=== PATIENT | male | born 1995 | race Hispanic/Latino ===

== ENCOUNTER 2024-02-28 08:09 | Emergency (ER) | payer SELFPAY ==
[2024-02-28 08:10] VITALS: BP 117/60; PULSE 100; RESP 16; TEMP 36.4; O2SAT 100
--- NOTE | 2024-02-28 10:02 | ED.GENADULT ---
HPI - General Adult General Chief complaint: Recheck/Abnormal Lab/Rx Stated complaint: dehydrated Time Seen by Provider: 02/28/24 10:03 via digital program manager, patient presents after drinking a lot of alcohol over the past 3 days. patient states he has not been drinking water or eating food. patient having epigastric abdominal pain and RUQ abdominal pain. PE: A&Ox3, RUQ abdominal pain and epigastric abdominal pain upon palpation. BS CTA, HR RRR. moving all extremities History of Present Illness HPI narrative: 28 y/o male presents with n/v, epigastric, and RUQ abdominal pain that started 3 days ago. patient states he has been drinking alcohol for 3 days straight and has not ate or drank any water. patient denies fevers. patient denies any medical problems. Onset (ago): day(s) (3) Related Data Allergies Allergy/AdvReac Type Severity Reaction Status Date / Time No Known Allergies Allergy Verified 02/28/24 10:15 Review of Systems Review of Systems: All systems reviewed & are unremarkable except as noted in HPI and below Constitutional: Constitutional: Reports fatigue and Denies fever(s) Gastrointestinal: Gastrointestinal: Reports abdominal pain, Reports heartburn, Reports diarrhea, Reports nausea and Reports vomiting Exam Const: General: healthy appearing and no acute distress HENMT: Head: normal to inspection Eyes: Conjunctivae: conjunctivae normal EOM: EOMs intact bilaterally Neck: Neck: normal visual inspection Chest: Chest palpation & inspection: normal inspection of the chest Resp: Effort & Inspection: normal respiratory effort Cardio: Rate: regular rate GI: GI Palp: Yes Tenderness to palpation present (GI) (ruq and epigastric ) Back/Spine/Pelvis: Back: no CVA tenderness Skin: General skin exam: normal color Neuro: General: patient oriented x3 Extrem: General: normal to inspection Psych: Mental Status: mental status grossly normal Course Course Emergency Course: labs, fluids and zofran Reevaluation(s) Reevaluation #1: patient is feeling better and ready to discharge home Date: 02/28/24 Time: 11:52 Vital Signs Vital signs: Vital Signs Temperature 36.4 C 02/28/24 08:10 Pulse Rate 100 02/28/24 08:10 Respiratory Rate 16 02/28/24 08:10 Blood Pressure 117/60 02/28/24 08:10 Pulse Oximetry 100 02/28/24 08:10 Temperature 36.4 C L 02/28/24 10:22 Pulse Rate 108 H 02/28/24 11:02 Respiratory Rate 19 02/28/24 11:02 Blood Pressure 150/91 H 02/28/24 11:02 Pulse Oximetry 98 02/28/24 11:02 Medical Decision Making MDM Narrative Medical decision making narrative: patient likely having dehydration r/t alcohol intoxication. patient feeling better after fluids and tolerating PO intake. will discharge home with zofran and pepcid Vital Signs Vital Signs: Vital Signs Temperature 36.4 C 02/28/24 08:10 Pulse Rate 100 02/28/24 08:10 Respiratory Rate 16 02/28/24 08:10 Blood Pressure 117/60 02/28/24 08:10 Pulse Oximetry 100 02/28/24 08:10 Temperature 36.4 C L 02/28/24 10:22 Pulse Rate 108 H 02/28/24 11:02 Respiratory Rate 19 02/28/24 11:02 Blood Pressure 150/91 H 02/28/24 11:02 Pulse Oximetry 98 02/28/24 11:02 Lab Data 02/28/24 10:26 02/28/24 10:26 Labs: Lab Results 02/28/24 02/28/24 Range/Units 10:26 11:24 WBC 7.5 (4.5-10.0) K/mm3 RBC 5.47 (4.6-6.20) M/mm3 Hgb 16.4 (14.0-18.0) g/dL Hct 48.7 (42.0-52.0) % MCV 89.0 (80-100) fl MCH 30.0 (26-34) pg MCHC 33.7 (32-36) g/dl RDW 10.6 L (11.5-14.5) % Plt Count 227 (150-375) k/mm3 MPV 11.5 H (7.4-10.4) fl Immature Gran % (Auto) 0.3 (0-0.5) % Neut % (Auto) 80.6 H (45.5-73.1) % Lymph % (Auto) 11.3 L (18.3-44.2) % [place] % (Auto) 6.8 (2.6-8.5) % Eos % (Auto) 0.1 (0-4.4) % Baso % (Auto) 0.9 (0.2-1.2) % Lymph # (Auto) 0.85 L (0.9-3.2) K/mm3 [place] # (Auto) 0.5 (0.1-0.6) K/mm3 Eos # (
[2024-02-28 10:22] VITALS: BP 156/93; PULSE 99; RESP 17; TEMP 36.4; O2SAT 98
[2024-02-28] MEDS: SODIUM CHLORIDE 0.9% IV 1,000 ML 999 ML IV CONT (10:24)
[2024-02-28] MEDS: ONDANSETRON INJ 4 MG/2 ML VIAL IV PUSH (10:25)
[2024-02-28 10:35] LABS: Basophils Absolute Auto 0.1 K/mm3 (0.0-0.1); Basophils Percent Auto 0.9 % (0.2-1.2); Eosinophils Percent Auto 0.1 % (0-4.4); Hematocrit 48.7 % (42.0-52.0); Hemoglobin 16.4 g/dL (14.0-18.0); Immature Granulocyte Absolute 0.02 K/mm3 (0.00-0.031); Immature Granulocyte Percent A 0.3 % (0-0.5); Lymphocytes Absolute Auto 0.85 K/mm3 (0.9-3.2); Lymphocytes Percent Auto 11.3 % (18.3-44.2); Mean Corpuscular HGB Conc 33.7 g/dl (32-36); Mean Platelet Volume 11.5 fl (7.4-10.4); Monocytes Absolute Auto 0.5 K/mm3 (0.1-0.6); Monocytes Percent Auto 6.8 % (2.6-8.5); Neutrophils Absolute Auto 6.1 K/mm3 (1.3-6.7); Neutrophils Percent Auto 80.6 % (45.5-73.1); Platelet Count Result 227 k/mm3 (150-375); Red Blood Count 5.47 M/mm3 (4.6-6.20); Red Cell Distribution Width 10.6 % (11.5-14.5); White Blood Count 7.5 K/mm3 (4.5-10.0)
[2024-02-28 10:55] LABS: Alanine Aminotransferase 29 U/L (6-50); Albumin Level 5.3 g/dL (3.5-5.1); Alkaline Phosphatase 66 U/L (38-126); Amylase 89 U/L (30-110); Anion Gap 14 mmol/L (4-12); Aspartate Amino Transferase 43 U/L (17-59); Blood Urea Nitrogen 10 mg/dL (9-20); Calcium 8.9 mg/dL (8.4-10.2); Carbon Dioxide 26 mmol/L (22-30); Chloride 98 mmol/L (98-107); Estimated CRCL calculation 124 ml/min; Estimated Glomerular Filt Rate > 60; Glucose 112 mg/dL (65-110); Lipase 89 U/L (23-300); Potassium 3.8 mmol/L (3.4-5.0); Sodium 138 mmol/L (137-145)
[2024-02-28 11:02] VITALS: BP 150/91; PULSE 108; RESP 19; O2SAT 98
[2024-02-28 12:18] VITALS: BP 136/94; PULSE 93; RESP 17; TEMP 36.9; O2SAT 99
== END 2024-02-28 12:20 | disposition home or self-care (01) ==
PROVIDERS: Emergency Provider Nurse Practitioner Family
DX: E86.0 Dehydration (principal); F10.129 Alcohol abuse with intoxication, unspecified; Y90.9 Presence of alcohol in blood, level not specified
CPT/HCPCS: 36415; 80053; 82150; 83690; 84600; 85025; 96361; 96374; 99284; J2405; J7030